=== PATIENT | male | born 1960 | race Caucasian/White ===

== ENCOUNTER 2017-09-21 15:55 | Emergency (ER) | payer BC, OTHER ==
--- NOTE | 2017-09-21 16:32 | EDM.PDOC ---
ED HPI GENERAL MEDICAL PROBLEM - General Chief Complaint: Upper Extremity Injury/Pain Stated Complaint: LEFT WRIST INJURY Time Seen by Provider: 09/21/17 16:02 Source of Information: Reports: Patient, RN Notes Reviewed - History of Present Illness INITIAL COMMENTS - FREE TEXT/NARRATIVE: 57 year old male with L wrist pain, started 3 days ago, lifting an object, was OK for a day and than reinjured last evening helping a neighbor with some wood work. Onset of severe pain during the night 12 hrs ago, continues today with any type of motion. Left Wrist Pain Score (Numeric/FACES): 3 - Related Data Allergies Allergy/AdvReac Type Severity Reaction Status Date / Time No Known Allergies Allergy Verified 12/26/13 06:13 Home Meds: Home Meds Hydrochlorothiazide 12.5 mg PO DAILY 12/26/13 [History] amLODIPine/Valsartan [Exforge 10-320 MG] 1 tab PO DAILY 12/26/13 [History] metFORMIN [Glucophage] 1,000 mg PO BIDM 12/26/13 [History] Aspirin [Halfprin] 81 mg PO DAILY #30 tab.ec 12/27/13 [Rx] Simvastatin [Zocor] 20 mg PO BEDTIME #30 tab 12/27/13 [Rx] Past Medical History Cardiovascular History: Reports: High Cholesterol, Hypertension Endocrine/Metabolic History: Reports: Diabetes, Type II Oncologic (Cancer) History: Reports: Basal Cell Carcinoma Social & Family History - Tobacco Use Smoking Status *Q: Current Every Day Smoker Years of Tobacco use: 25 Packs/Tins Daily: 1 - Caffeine Use Caffeine Use: Reports: Coffee - Recreational Drug Use Recreational Drug Use: No Review of Systems - Review of Systems Review Of Systems: See Below Constitutional: Denies: Chills, Fever Mouth/Throat: Reports: No Symptoms Respiratory: Denies: Shortness of Breath Cardiovascular: Denies: Chest Pain GI/Abdominal: Denies: Nausea, Vomiting Musculoskeletal: Reports: Joint Pain (L wrist) Skin: Denies: Erythema Neurological: Denies: Numbness, Tingling ED EXAM, GENERAL - Physical Exam Exam: See Below General Appearance: Alert, No Apparent Distress Head: Atraumatic Neck: Supple Respiratory/Chest: No Respiratory Distress Extremities: Other (there is some volar and dorsal tenderness L wrist, no warmth or erythema, no localized bony tenderness, mild pain with flexion and extionsion of fingers). No: Redness Neurological: Alert, Slow to Respond Course - Vital Signs Last Recorded V/S: Last Vital Signs Temp 98.3 F 09/21/17 16:06 Pulse 103 H 09/21/17 16:06 Resp 20 09/21/17 16:06 BP 162/100 H 09/21/17 16:06 Pulse Ox 97 09/21/17 16:06 - Re-Assessments/Exams Free Text/Narrative Re-Assessment/Exam: 09/21/17 16:45 x rays not clinically indicated today, he worked yesterday and Friday after the initial injury, no direct blow or fall, sx suggestive for tendonitis. Departure - Departure Time of Disposition: 16:30 Disposition: Home, Self-Care 01 Condition: Fair Clinical Impression: Left wrist tendonitis - Discharge Information Instructions: Tendinitis Referrals: Richar Connor Jr, MD [Primary Care Provider] - Forms: ED Department Discharge Additional Instructions: use wrist brace until pain resolving, advil or ibuprofen 600 mg 3 times daily for pain and inflamation, tylenol in between doses for mild to moderate discomfort or hydrocodone if needed for severe pain, do not take tylenol and hydrocodone at the same time, do not drive or work when taking hydrocodone.
[2017-09-21 17:04] VITALS: BP 153/93
== END 2017-09-21 16:45 | disposition home or self-care (01) ==
LOC: JD.ED 15:55
DX: M77.9 Enthesopathy, unspecified (principal); E78.00 Pure hypercholesterolemia, unspecified; I10 Essential (primary) hypertension; E11.9 Type 2 diabetes mellitus without complications; F17.210 Nicotine dependence, cigarettes, uncomplicated; Z79.899 Other long term (current) drug therapy; Z79.82 Long term (current) use of aspirin; Z79.84 Long term (current) use of oral hypoglycemic drugs
CPT/HCPCS: 99282; 99283